=== PATIENT | male | born 1970 | race Asian ===

== ENCOUNTER → 2017-10-03 | Outpatient (CLI) | payer OTHER ==
[2016-08-21 09:25] VITALS: BP 145/96
[~2017-10-03] MED LIST: ACYC200C PO; AMLO5TAB2 PO; ASPI325T8 PO; ASPI81TA44 PO; ATOR40TA59 PO; HYDR-2758 PO; METO-239 PO; METO25TA4 PO
--- NOTE | 2017-10-03 09:20 | CARD ---
APPROVED REPORT EXAM: Two-dimensional and M-mode echocardiogram with Doppler and color Doppler. Other Information Quality : Good INDICATION Cardiac Disease: CAD 2D DIMENSIONS Left Atrium(2D)2.9 (1.6-4.0cm)IVSd1.3 (0.7-1.1cm) Aortic Root(2D)3.5 (2.0-3.7cm)LVDd4.2 (3.9-5.9cm) LVOT Diameter2.0 (1.8-2.4cm)PWd1.2 (0.7-1.1cm) LVDs3.2 (2.5-4.0cm)FS (%) 25.0 % SV39.3 mlLVEF(%)49.9 (>50%) Aortic Valve AoV Peak Cesar.114.2cm/sAoV VTI28.9cm AO Peak GR.5.2mmHgLVOT Peak Cesar.70.5cm/s AO Mean GR.3mmHgAVA (VMAX)1.94cm2 CRISTIAN (VTI)1.80cm2 Mitral Valve MV E Akzopbso34.1cm/sMV DECEL [id number] MV A Mrzuvpoa242.5cm/sE/A Ratio0.9 Tricuspid Valve TR P. [id number]/sRAP [id number] TR Peak Gr.1usFoYPBB0rcBz LEFT VENTRICLE The left ventricle is normal size. There is mild concentric left ventricular hypertrophy. Left ventri jorge l systolic function is mildly decreased. The Ejection Fraction is estimated at 45-50%. Mild global hypokinesis. Tissue Doppler imaging reveals moderate left ventricular diastolic dysfunction. RIGHT VENTRICLE The right ventricle is normal size. The right ventricular systolic function is normal. ATRIA The left atrium size is normal. The right atrium size is normal. The interatrial septum is intact wit h no evidence for an atrial septal defect or patent foramen ovale as noted on 2-D or Doppler imaging. AORTIC VALVE The aortic valve is mildly thickened but opens well. Doppler and Color Flow revealed no significant a ortic regurgitation. There is no significant aortic valvular stenosis. MITRAL VALVE The mitral valve is mildly thickened. There is no evidence of mitral valve prolapse. There is no mitr al valve stenosis. Doppler and Color-flow revealed mild mitral regurgitation. TRICUSPID VALVE The tricuspid valve is normal in structure and function. Doppler and Color Flow revealed trace tricus pid regurgitation. There is no pulmonary hypertension. The PA pressure was estimated at 8 mmHg. There is no tricuspid valve prolapse or vegetation. There is no tricuspid valve stenosis. PULMONIC VALVE Doppler and Color Flow revealed mild pulmonic valvular regurgitation. There is no pulmonic valvular s tenosis. GREAT VESSELS The aortic root is mildly dilated. The ascending aorta is normal in size. The IVC is normal in size a nd collapses >50% with inspiration. PERICARDIAL EFFUSION There is no pleural effusion. There is no evidence of significant pericardial effusion. Critical Notification Critical Value: No <Conclusion> Left ventricle systolic function is mildly decreased. The Ejection Fraction is estimated at 45-50%. Mild global hypokinesis. The aortic root is mildly dilated.
== END | disposition home or self-care (01) ==
LOC: ECHO 07:21
PROVIDERS: ATTEND Internal Medicine Cardiovascular Disease
CPT/HCPCS: 93306

== ENCOUNTER → 2021-07-30 | Outpatient (CLI) | payer MEDICARE, OTHER ==
[2018-07-10 08:46] VITALS: BP 147/99
[~2021-07-30] MED LIST changes: +ACET500T68 PO; -ACYC200C PO; +ACYC200C84 PO; +ALLO100T PEG; +AMLO-186 PO; +AMLO-187 PO; -AMLO5TAB2 PO; -ASPI81TA44 PO; +ASPI81TA59 PO; +CYAN1TAB21 PO; +DARBEPOETIN SQ; +DICL100G54 TP; +FAMO20TA5 PO; +FERR300L PEG; +FOLI0.8T3 PO; -HYDR-2758 PO; +HYDR-2761 PO; +MELA3TAB4 PO; +METO-269 PO; +ONDA4TAB12 PO; +OXYC5CAP PO; +POLY17PO29 PO; +SEVE2.4P PO
--- NOTE | 2021-07-30 18:11 | RAD ---
EXAM: XR ABDOMEN 1V 07/30/2021 11:05 AM CLINICAL INDICATION: Peritoneal dialysis catheter placement COMPARISON: None available TECHNIQUE: AP view the abdomen FINDINGS: There is tubing coiled over the pelvis, likely the patient's peritoneal dialysis catheter. Bowel gas pattern is nonspecific and nonobstructive. No abnormal calcifications. No acute osseous ab normality. IMPRESSION: Tubing coiled over the pelvis likely corresponding with the patient's dialysis catheter. Electronically signed by: Ena Martinez MD (07/30/2021 6:09 PM) [id number]
== END ==
LOC: RAD 10:31
PROVIDERS: ATTEND Internal Medicine Nephrology
DX: Z49.02 Encounter for fitting and adjustment of peritoneal dialysis catheter (principal)
CPT/HCPCS: 74018

== ENCOUNTER → 2021-12-10 | Outpatient (CLI) | payer MEDICARE, OTHER ==
[2018-07-10 08:46] VITALS: BP 147/99
--- NOTE | 2021-12-10 10:40 | RAD ---
INDICATION: Reason: bloddy effluent during peritoneal dialysis / Spl. Instructions: / History: . COMPARISON: May 2016 TECHNIQUE: Axial CT images obtained through the abdomen and pelvis without contrast. One or more of the following individualized dose reduction techniques were utilized for this examinat ion: 1. Automated exposure control; 2. Adjustment of the mA and/or kV according to patient size; 3 . Use of iterative reconstruction technique. FINDINGS: Bronchiectasis at lung bases. There is also some groundglass and nodular opacities and regions of sca rring. Pleural calcification. Coronary artery calcific atherosclerosis. 25 mm cystic structure adjacent to the distal esophagus could be loculated fluid or cystic lesion suc h as duplication cyst. Calcific atherosclerosis throughout the vasculature. Fat-containing hernia. Some fluid is extending into the right inguinal hernia. Limited assessment for solid organ or vascular abnormality secondary to lack of intravenous contrast. Gallstones are visualized. Gallstones are seen. Nodular contour of the liver. Limited assessment of the pancreas secondary to lack of contrast. Fluid is seen surrounding the liver and spleen with moderate amount of fluid seen elsewhere in the ab domen as well extending into the pelvis. Some fluid appears loculated including interloop fluid. Atrophic kidneys. No hydronephrosis. Lobulated appearance of the kidneys which could be secondary to renal lesions which are not well characterized on noncontrast imaging. Urinary bladder is largely dec ompressed. Peritoneal dialysis catheter is identified coiled within the left lower quadrant the abdomen. There are some subcutaneous induration of the fat of the anterior abdominal wall with some subcutaneo us fluid and skin thickening. There is edema throughout the mesentery with areas of nodularity. No dilated loops of bowel to suggest obstruction. Degenerative changes of the spine with multilevel central canal and neural foraminal stenosis. IMPRESSION: * Moderate free fluid is seen throughout the abdomen and pelvis with some areas of loculation. * There is some edema within the mesentery as well as nodularity. Causes such as peritoneal carcinom atosis are within the differential although it is possible that this is secondary to nonneoplastic ed champ to the mesentery. It may be helpful to obtain a follow-up CT the abdomen pelvis with intravenous and oral contrast since neoplastic causes are within the differential for this finding. * There is some subcutaneous edema at the anterior abdominal wall with skin thickening and subcutane ous fluid. Would correlate with physical exam findings to ensure there is not a pathologic cause such as cystitis contributing. * Calcific atherosclerosis. * Gallstones. * Regions of scarring at the lung bases as well as some groundglass and nodular opacities. Could be from chronic lung disease or infectious/inflammatory etiology but could also obtain a follow-up to en sure no increase in any of the nodular opacities to exclude neoplastic causes. Electronically signed by: Andrew Bruce MD (12/10/2021 10:37 AM) [id number]
== END ==
LOC: CT 09:36
PROVIDERS: ATTEND Internal Medicine Nephrology
DX: K80.20 Calculus of gallbladder without cholecystitis without obstruction (principal); K40.90 Unilateral inguinal hernia, without obstruction or gangrene, not specified as recurrent; N26.1 Atrophy of kidney (terminal); J47.9 Bronchiectasis, uncomplicated; J94.8 Other specified pleural conditions; J98.4 Other disorders of lung; I25.10 Atherosclerotic heart disease of native coronary artery without angina pectoris
CPT/HCPCS: 74176